=== PATIENT | male | born 2000 | race Caucasian/White ===

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

== ENCOUNTER 2020-11-17 04:40 | Emergency (ER) | payer OTHER ==
[~2020-11-17 04:40] MED LIST: MESALAMINE E0.375 GM PO
[2020-11-17 05:24] LABS: HEMOGLOBIN 17.6 gm/dl (14.0-17.5); RED BLOOD COUNT 5.81 M/UL (4.20-5.50); WHITE BLOOD COUNT 14.5 K/UL (4.5-11.0)
[2020-11-17 05:40] LABS: BUN/CREATININE RATIO 15 (0-10)
[2020-11-17] MEDS ORDERED: FLAGYL500 MG PO (07:05)
[2020-11-17] MEDS ORDERED: AUGMENTIN 875-1 EACH PO (07:05)
[2020-11-17] MEDS ORDERED: IBUPROFEN800 MG PO (07:05)
[2020-11-17] MEDS ORDERED: ZOFRAN 4 MG TAB4 MG PO (07:05)
== END 2020-11-17 07:22 | disposition home or self-care (01) ==
LOC: ER1 04:40
PROVIDERS: Emergency Medicine
DX: K51.90 Ulcerative colitis, unspecified, without complications (principal); K52.9 Noninfective gastroenteritis and colitis, unspecified; F17.200 Nicotine dependence, unspecified, uncomplicated; Z20.822 Contact with and (suspected) exposure to COVID-19
CPT/HCPCS: 0240U; 71045; 80053; 83690; 85025; 93005; 96374; 96375; 99284; J2270; J2405; Q9967

== ENCOUNTER → 2021-02-18 | Outpatient (CLI) | payer OTHER ==
[~2021-02-18] MED LIST changes: +AUGMENTIN 875-1 EACH PO; +FLAGYL500 MG PO; +IBUPROFEN800 MG PO; +ZOFRAN 4 MG TAB4 MG PO
[2021-02-18 15:41] LABS: HEMOGLOBIN 16.4 gm/dl (14.0-17.5); RED BLOOD COUNT 5.61 M/UL (4.20-5.50); WHITE BLOOD COUNT 6.3 K/UL (4.5-11.0)
[2021-02-18 16:07] LABS: BUN/CREATININE RATIO 12 (0-10)
== END ==
LOC: LAB 15:06
PROVIDERS: Nurse Practitioner Psychiatric/Mental Health
DX: F32.9 Major depressive disorder, single episode, unspecified (principal); E03.9 Hypothyroidism, unspecified; E11.9 Type 2 diabetes mellitus without complications
CPT/HCPCS: 80053; 80061; 82607; 82746; 83036; 84443; 85027; 93005